=== PATIENT | male | born 1995 | race Hispanic/Latino ===

== ENCOUNTER 2018-04-03 18:56 | Emergency (ER) | payer OTHER, SELFPAY ==
[2018-04-03] MEDS ORDERED: HYDROCODONE/APAP 7.5/325 MG TAB ONE (19:34)
[2018-04-03] MEDS ORDERED: IBUPROFEN 200 MG TAB PO ONE (19:35)
[2018-04-03] MEDS ORDERED: IBUPROFEN 400 MG TAB ONE (19:35)
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
[2018-04-03 20:29] LABS: Urine Blood NEGATIVE (NEG); Urine Glucose NEGATIVE (NEG); Urine Protein NEGATIVE (NEG); Urine Specific Gravity >1.030 (1.005-1.030)
== END 2018-04-03 20:16 | disposition home or self-care (01) ==
LOC: ER 18:56
DX: S16.1XXA Strain of muscle, fascia and tendon at neck level, initial encounter (principal); R10.814 Left lower quadrant abdominal tenderness; V89.2XXA Person injured in unspecified motor-vehicle accident, traffic, initial encounter
CPT/HCPCS: 70450; 71250; 72125; 81003; 99284

== ENCOUNTER 2024-02-07 22:34 | Emergency (ER) | payer BC ==
[2024-02-07] MEDS ORDERED: ONDANSETRON 4 MG/2 ML VIAL ONE (22:55)
[2024-02-07] MEDS ORDERED: KETOROLAC 30 MG/ML INJ ONE (22:55)
[2024-02-07] MEDS ORDERED: NA CHLORIDE 0.9% 1,000 ML ONE (22:56)
[2024-02-07] MEDS ORDERED: FAMOTIDINE 20 MG/2 ML VIAL IV ONE (22:56)
[2024-02-07 23:18] LABS: Absolute Eosinophils 0.2 K/uL (0-0.5); Absolute Monocytes 0.7 K/uL (0.1-1.3); Absolute Neutrophil 3.1 K/uL (1.8-8.0); Basophils % 0.8 % (0-1.3); Eosinophils % 3.4 % (0-4.4); Hematocrit 42.7 % (39.6-49.0); Hemoglobin 14.8 g/dL (13.6-17.9); Lymphocytes % 32.9 % (15.3-44.8); MCH 29.3 pg (27.0-35.0); MCHC 34.7 g/dL (32.0-36.0); MCV 84.3 fL (80-100); MPV 9.7 fL (7.6-11.3); Monocytes % 11.3 % (3.3-12.3); Neutrophils % 51.6 % (41.7-73.7); Platelets 211 thou/uL (152-406); RBC Red Blood Cell Count 5.07 M/uL (4.33-5.43); Red Cell Distribution Width 12.7 % (12.1-15.2)
[2024-02-07 23:34] LABS: Albumin 3.8 g/dL (3.4-5.0); Anion Gap 9.8 mEq/L (5.0-15.0); Bilirubin Total 0.6 mg/dL (0.2-1.0); Globulin 3.8 g/dL (2.3-3.5); Potassium 3.8 mEq/L (3.5-5.1); Protein, Total 7.6 g/dL (6.4-8.2)
[2024-02-07 23:37] LABS: SARS-CoV-2 Antigen CONTROL BLUE LINE VIS/BG OK; SARS-CoV-2 Antigen Rapid Res Negative (Negative)
--- NOTE | 2024-02-08 01:21 | EDPHYS ---
Physician Documentation [facility] Name: Ryan Marshall Age: 28 yrs Sex: Male : 1995 Arrival Date: 02/07/2024 Time: 22:34 Bed 7 Private MD: ED Physician Michael Garibay HPI: 02/06 22:37 This 28 yrs old Male presents to ER via Unassigned with complaints of kb Abdominal Pain, Abdominal Cramping. 22:37 Pt is a 28 year old male who presents for upper abd pain that started at 1000 kb yesterday. Reports pain waxes and wanes, but has been constant since onset. Reports vomiting yesterday. Denies diarrhea, fever. No aggravating or alleviating factors. States when pain level is low the pain is to lower abd, but when the pain level is high the pain is in the upper abd. . Historical: - Allergies: 22:56 No Known Allergies; jb4 - PMHx: 22:56 hernia; jb4 - PSHx: 22:56 hernia repair; jb4 - Immunization history:: Adult Immunizations up to date. - Infectious Disease History:: Denies. - Social history:: Smoking status: Patient denies any tobacco usage or history of. ROS: 22:37 Constitutional: As per HPI kb Exam: 22:37 Constitutional: This is a well developed, well nourished patient who is awake, alert, kb and in no acute distress. Head/Face: Normocephalic, atraumatic. ENT: Moist Mucous membranes Cardiovascular: Regular rate Respiratory: Respirations even and unlabored. No increased work of breathing. Talking in full sentences Skin: Warm, dry with normal turgor. Normal color. MS/ Extremity: Pulses equal, no cyanosis. Neurovascular intact. Full, normal range of motion. Neuro: Awake and alert, GCS 15, oriented to person, place, time, and situation. Moves all extremities. Normal gait. 02/07 00:31 Abdomen/GI: Inspection: abdomen appears normal, Bowel sounds: normal, Palpation: soft, kb in all quadrants, mild abdominal tenderness, in the epigastric area, right lower quadrant and left lower quadrant, Vital Signs: 02/06 22:53 BP 142 / 96; Pulse 56; Resp 16; Temp 97.8(O); Pulse Ox 99% on R/A; Weight 74.84 kg (R); jb4 Height 5 ft. 10 in. (R); Pain /; 02/07 01:30 BP 135 / 82; Pulse 64; Resp 16 S; Pulse Ox 99% on R/A; lg3 02/06 22:53 Body Mass Index 23.67 (74.84 kg, 177.8 cm) jb4 02/06 22:53 Pain Scale: Adult jb4 MDM: 02/06 22:37 Patient medically screened. kb 22:39 Data reviewed: vital signs, nurses notes. kb 02/07 01:05 Transition of care: After a detail discussion of the patient's case, care is kb transferred to Michael Garibay MD. 02/06 22:41 Order name: CBC with Diff; Complete Time: 23:21 kb 02/06 22:41 Order name: CMP; Complete Time: 23:34 kb 02/06 22:41 Order name: Lipase; Complete Time: 23:34 kb 02/06 22:42 Order name: Flu; Complete Time: 23:38 kb 02/06 22:42 Order name: SARS-COV-2 Antigen Rapid; Complete Time: 23:38 kb 02/06 22:41 Order name: CT Abd/Pelvis - IV Contrast Only kb 02/06 22:41 Order name: IV Saline Lock; Complete Time: 23:09 kb 02/06 22:41 Order name: Labs collected and sent; Complete Time: 23:09 kb Administered Medications: 02/06 23:28 Drug: NS 0.9% IV 1000 ml IV at 1 bolus Per protocol; 1000 mL bolus Route: IV; Rate: 1 lg3 bolus; Site: right antecubital; 02/07 01:31 Follow up: Response: No adverse reaction; IV Status: Completed infusion; IV Intake: lg3 1000ml 02/06 23:28 Drug: Famotidine IVP 20 mg IVP once; dilute with 10 mL 0.9% NaCl; give over 2 minutes lg3 Route: IVP; Site: right antecubital; 02/07 01:31 Follow up: Response: No adverse reaction 3 02/06 23:28 Drug: TORadol - Ketorolac IVP 15 mg IVP once Route: IVP; Site: right antecubital; lg3 02/07 01:31 Follow up: Response: No adverse reaction 3 02/06 23:28 Drug: Ondansetron IVP 4 mg IVP once; over 2 minutes Route: IVP; Site: right antecubital;lg3 02/07 01:31 Follow up: Response: No adverse reaction lg3 Disposition: 01:20 Co-signature as Attending Physician, Michael Garibay MD I agree with the assessment and [facility] plan of care. Disposition Summary: 02/08/24 01:20 Discharge Ordered Notes: Location: Home [facility] Condition: Stable mariana Diagnosis - Abdominal pain, Generalized mariana - Nausea with vomiting, unspecified mariana Followup: kb - With: Emergency Department - When: As needed - Reason: Worsening of condition Followup: kb - With: Private Physician - When: 2 - 3 days - Reason: Recheck today's complaints, Continuance of care, Re-evaluation by your physician Discharge Instructions: - Discharge Summary Sheet kb - Nausea and Vomiting, Adult, [id number] kb - Abdominal Pain, Adult, [id number] kb Forms: - Medication Reconciliation Form [facility] - Antibiotic Education [facility] - Prescription Opioid Use [facility] - Patient Portal Instructions [facility] - Leadership Thank You Letter [facility] Prescriptions: - Zofran 4 mg Oral tablet - take 1 tablet ORAL route every 6 hours As needed; 12 tablet; Refills: 0, kb Product Selection Permitted - dicyclomine 20 mg Oral tablet - take 1 tablet ORAL route 4 times per day As needed; 20 tablet; Refills: 0, kb Product Selection Permitted Signatures: Dispatcher [employer] EDClaudette Samuels, Michael Pastrana MD MD cha Bryson, James RN RN jb4 Marilynn Rendon RN RN lg3 Corrections: (The following items were deleted from the chart) 02/06 22:41 22:37 Pt is a 28 year old male who presents for upper abd pain that started at 1000 kb yesterday. Reports pain waxes and wanes, but has been constant since onset. Reports vomiting yesterday. Denies diarrhea, fever. No aggravating or alleviating factors. . kb 22:42 22:42 CBC+H.LAB.BRZ ordered. EDMS EDMS 22:42 22:42 COMPREHENSIVE METABOLIC PANEL+C.LAB.BRZ ordered. EDMS EDMS 22:42 22:42 LIPASE+C.LAB.BRZ ordered. EDMS EDMS 22:42 22:42 Abdomen Pelvis W Con+CT.RAD.BRZ ordered. EDMS EDMS 22:57 22:56 PMHx: None; jb4 jb4 02/07 00:31 02/06 22:37 Constitutional: This is a well developed, well nourished patient who is kb awake, alert, and in no acute distress. Head/Face: Normocephalic, atraumatic. ENT: Moist Mucous membranes Cardiovascular: Regular rate Respiratory: Respirations even and unlabored. No increased work of breathing. Talking in full sentences Skin: Warm, dry with normal turgor. Normal color. MS/ Extremity: Pulses equal, no cyanosis. Neurovascular intact. Full, normal range of motion. Neuro: Awake and alert, GCS 15, oriented to person, place, time, and situation. Moves all extremities. Normal gait. kb
--- NOTE | 2024-02-08 01:21 | ER ---
Nurse's Notes [facility] Name: Ryan Marshall Age: 28 yrs Sex: Male : 1995 Arrival Date: 02/07/2024 Time: 22:34 Bed 7 Private MD: Diagnosis: Abdominal pain, Generalized;Nausea with vomiting, unspecified Presentation: 02/06 22:53 Chief complaint: Patient states: I started having upper abdominal pain with vomiting jb4 and diarrhea yesterday. Today the pain comes in waves. Coronavirus screen: At this time, the client does not indicate any symptoms associated with coronavirus-19. Ebola Screen: No symptoms or risks identified at this time. Initial Sepsis Screen: Does the patient meet any 2 criteria? No. Patient's initial sepsis screen is negative. Does the patient have a suspected source of infection? No. Patient's initial sepsis screen is negative. Risk Assessment: Do you want to hurt yourself or someone else? Patient reports no desire to harm self or others. Onset of symptoms was February 07, 2024. Transition of care: patient was not received from another setting of care. 22:53 Method Of Arrival: Ambulatory jb4 22:53 Acuity: TAMI 3 jb4 Historical: - Allergies: 22:56 No Known Allergies; jb4 - PMHx: 22:56 hernia; jb4 - PSHx: 22:56 hernia repair; jb4 - Immunization history:: Adult Immunizations up to date. - Infectious Disease History:: Denies. - Social history:: Smoking status: Patient denies any tobacco usage or history of. Screenin:29 [facility] ED Fall Risk Assessment (Adult) History of falling in the last 3 months, lg3 including since admission No falls in past 3 months (0 pts) Confusion or Disorientation No (0 pts) Intoxicated or Sedated No (0 pts) Impaired Gait No (0 pts) Mobility Assist Device Used No (0 pt) Altered Elimination No (0 pt) Score/Fall Risk Level 0 - 2 = Low Risk Oriented to surroundings, Maintained a safe environment, Educated pt \T\ family on fall prevention, incl call for assistance when getting out of bed, Assessed \T\ reinforced patient's understanding of fall precautions. Abuse screen: Denies threats or abuse. Denies injuries from another. Nutritional screening: No deficits noted. Tuberculosis screening: No symptoms or risk factors identified. Assessment: 23:29 General: Appears in no apparent distress. comfortable, Behavior is calm, cooperative. lg3 Pain: Complains of pain in abdomen Pain does not radiate. Pain currently is 5 out of 10 on a pain scale. Neuro: No deficits noted. Nielson Agitation-Sedation Scale (RASS): 0 - Alert and Calm Level of Consciousness is awake, alert, obeys commands, Oriented to person, place, time, situation. Cardiovascular: No deficits noted. Denies chest pain, shortness of breath, Capillary refill < 3 seconds Clubbing of nail beds is absent JVD is absent Patient's skin is warm and dry. Respiratory: No deficits noted. Airway is patent Respiratory effort is even, unlabored, Respiratory pattern is regular, symmetrical. GI: Abdomen is flat, non-distended, Bowel sounds present X 4 quads. Abd is soft X 4 quads Reports lower abdominal pain, upper abdominal pain. : No deficits noted. No signs and/or symptoms were reported regarding the genitourinary system. EENT: No deficits noted. No signs and/or symptoms were reported regarding the EENT system. Derm: No deficits noted. No signs and/or symptoms reported regarding the dermatologic system. Skin is intact, is healthy with good turgor, Skin is dry, Skin is normal, Skin temperature is warm. Musculoskeletal: No deficits noted. No signs and/or symptoms reported regarding the musculoskeletal system. Circulation, motion, and sensation intact. Range of motion: intact in all extremities. 02/07 01:30 Reassessment: Patient appears in no apparent distress at this time. No changes from lg3 previously documented assessment. Patient and/or family updated on plan of care and expected duration. Pain level reassessed. Patient is alert, oriented x 3, equal unlabored respirations, skin warm/dry/pink. Vital Signs: 02/06 22:53 BP 142 / 96; Pulse 56; Resp 16; Temp 97.8(O); Pulse Ox 99% on R/A; Weight 74.84 kg (R); jb4 Height 5 ft. 10 in. (R); Pain 2/; 02/07 01:30 BP 135 / 82; Pulse 64; Resp 16 S; Pulse Ox 99% on R/A; lg3 02/06 22:53 Body Mass Index 23.67 (74.84 kg, 177.8 cm) 4 02/06 22:53 Pain Scale: Adult jb4 ED Course: 02/06 22:36 Patient arrived in ED. jj6 22:37 [facility] kb 22:37 Michael Garibay MD is Attending Physician. kb 22:56 Triage completed. jb4 22:56 Arm band placed on right wrist. jb4 23:08 Inserted saline lock: 20 gauge in right antecubital area, using aseptic technique. rv1 Blood collected. Flushed with 10 mL NS. 23:09 SARS-COV-2 Antigen Rapid Sent. rv1 23:09 Flu Sent. rv1 23:09 CBC with Diff Sent. rv1 23:09 CMP Sent. rv1 23:09 Lipase Sent. rv1 23:29 Patient has correct armband on for positive identification. Placed in gown. Bed in low lg3 position. Call light in reach. Side rails up X 1. Client placed on continuous cardiac and pulse oximetry monitoring. NIBP monitoring applied. Door closed. Noise minimized. Warm blanket given. Pillow given. 23:53 Marilynn Rendon, RN is Primary Nurse. lg3 02/07 00:02 CT Abd/Pelvis - IV Contrast Only In Process Unspecified. EDMS 01:46 No provider procedures requiring assistance completed. IV discontinued, intact, lg3 bleeding controlled, No redness/swelling at site. Pressure dressing applied. Administered Medications: 02/06 23:28 Drug: NS 0.9% IV 1000 ml IV at 1 bolus Per protocol; 1000 mL bolus Route: IV; Rate: 1 lg3 bolus; Site: right antecubital; 02/07 01:31 Follow up: Response: No adverse reaction; IV Status: Completed infusion; IV Intake: lg3 1000ml 02/06 23:28 Drug: Famotidine IVP 20 mg IVP once; dilute with 10 mL 0.9% NaCl; give over 2 minutes lg3 Route: IVP; Site: right antecubital; 02/07 01:31 Follow up: Response: No adverse reaction 3 02/06 23:28 Drug: TORadol - Ketorolac IVP 15 mg IVP once Route: IVP; Site: right antecubital; lg3 02/07 01:31 Follow up: Response: No adverse reaction 3 02/06 23:28 Drug: Ondansetron IVP 4 mg IVP once; over 2 minutes Route: IVP; Site: right antecubital;lg3 02/07 01:31 Follow up: Response: No adverse reaction lg3 Medication: 01:46 VIS not applicable for this client. lg3 Intake: 01:31 IV: 1000ml; Total: 1000ml. lg3 Outcome: 01:20 Discharge ordered by . mariana 01:46 Discharged to home ambulatory, lg3 01:46 Condition: stable 01:46 Discharge instructions given to patient, Instructed on discharge instructions, follow up and referral plans. medication usage, Demonstrated understanding of instructions, follow-up care, medications, Prescriptions given X 2, 01:47 Patient left the ED. lg3 Signatures: Dispatcher [employer] EDMS Claudette Worthy, STRIKE ON MACHINE OPERATOR-C STRIKE ON MACHINE OPERATOR-Michael Jones MD MD cha Bryson, James, RN RN jb4 Marilynn Rendon RN RN lg3 Cristy Hanson Rebecca [facility] Corrections: (The following items were deleted from the chart) 02/06 22:57 22:56 PMHx: None; jb4 jb4
[2024-02-08 02:04] VITALS: TEMP 97.8; O2SAT 99
[2024-02-08 02:07] VITALS: BP 135/82
--- NOTE | 2024-02-08 11:30 | RAD REPORT ---
EXAM DESCRIPTION: CT - Abdomen Pelvis W Contrast - 02/08/2024 6:55 am CLINICAL HISTORY: The patient is 28 years old and is Male; ABD PAIN TECHNIQUE: Axial computed tomography images of the abdomen and pelvis with intravenous contrast. S agittal and coronal reformatted images were created and reviewed. This CT exam was performed using one or more of the following dose reduction techniques: automated exposure control, adjustment of t he mA and/or kV according to patient size, and/or use of iterative reconstruction technique. COMPARISON: No relevant prior studies available. FINDINGS: LUNG BASES: Calcified granuloma within the right lower lobe is evident. No consolidati on. ABDOMEN: LIVER: Unremarkable. No mass. GALLBLADDER AND BILE DUCTS: The gallbladder is contracted. PANCREAS: No ductal dilation. No mass. SPLEEN: A splenule is present within left upper quadrant. The spleen is homogeneous. ADRENALS: Unremarkable. No mass. KIDNEYS AND URETERS: Unremarkable. The kidneys enhance symmetrically. No obstructing renal or ure teral calculus is seen. No hydronephrosis or hydroureter. No perinephric fluid or stranding. STOMACH AND BOWEL: The stomach is distended with food contents. The small bowel is fluid-filled a nd normal in caliber. A moderate amount of stool is present throughout the colon. There is no mucosal thickening or evidence of obstruction. PELVIS: APPENDIX: The appendix is normal in caliber without surrounding inflammation. BLADDER: Unremarkable. No mass. REPRODUCTIVE: Unremarkable as visualized. ABDOMEN and PELVIS: INTRAPERITONEAL SPACE: Unremarkable. No free air. No significant fluid collection. BONES/JOINTS: No acute fracture. SOFT TISSUES: The soft tissues are normal. VASCULATURE: Unremarkable. No abdominal aortic aneurysm. LYMPH NODES: Unremarkable. No enlarged lymph nodes. IMPRESSION: No acute findings on this contrasted CT of the abdomen and pelvis to explain the patient 's symptoms. Electronically signed by: Elysia Wilson MD 02/08/2024 01:10 AM CDT RP Due to temporary technical issues with the PACS/Fluency reporting system, reports are being signed by the in house radiologist without review as a courtesy to ensure prompt reporting. The interpreting r adiologist is fully responsible for the content of the report.
== END 2024-02-08 01:47 | disposition home or self-care (01) ==
LOC: ER 22:34
DX: R10.84 Generalized abdominal pain (principal); R11.2 Nausea with vomiting, unspecified; Z11.52 Encounter for screening for COVID-19
CPT/HCPCS: 96361; 85025; 36415; 83690; 80053; 87804 ×2; 74177; 96375; 96374; 99284; 87811; Q9967; J2405; J7030